=== PATIENT | male | born 1995 | race African-American/Black ===

== ENCOUNTER 2023-05-27 15:30 | Emergency (ER) | payer OTHER ==
[~2023-05-27] VITALS: Ht 175.3 cm; Wt 61.5 kg
[2023-05-27 16:13] VITALS: BP 109/77; PULSE 87; RESP 20; TEMP 99.9; O2SAT 96
[2023-05-27] MEDS ORDERED: PROM1SOL4 PO (16:57)
[2023-05-27] MEDS ORDERED: AZIT-81 PO (16:57)
== END 2023-05-27 17:27 | disposition home or self-care (01) ==
LOC: ER 15:30
DX: J20.9 Acute bronchitis, unspecified (principal); J02.9 Acute pharyngitis, unspecified
CPT/HCPCS: 71045

== ENCOUNTER 2023-06-22 13:35 | Emergency (ER) | payer OTHER ==
[~2023-06-22] VITALS: Ht 175.3 cm; Wt 60.0 kg
[~2023-06-22 13:35] MED LIST: AZIT-81 PO; PROM1SOL4 PO
[2023-06-22 14:26] VITALS: BP 116/75; PULSE 82; RESP 20; TEMP 99.4; O2SAT 96
[2023-06-22] MEDS ORDERED: NAPR-746 PO (15:13)
== END 2023-06-22 15:23 | disposition home or self-care (01) ==
LOC: ER 13:35
DX: S63.601A Unspecified sprain of right thumb, initial encounter (principal); Z79.2 Long term (current) use of antibiotics; Z79.899 Other long term (current) drug therapy; W21.05XA Struck by basketball, initial encounter; Y93.67 Activity, basketball; Y92.89 Other specified places as the place of occurrence of the external cause; Y99.8 Other external cause status
CPT/HCPCS: 73130

== ENCOUNTER 2024-04-16 10:38 | Emergency (ER) | payer OTHER ==
[~2024-04-16] VITALS: Ht 175.3 cm; Wt 60.7 kg
[~2024-04-16 10:38] MED LIST changes: +AZIT-185 PO; -AZIT-81 PO; +NAPR-746 PO
[2024-04-16 10:40] VITALS: BP 125/79; PULSE 104; RESP 18; O2SAT 98
--- NOTE | 2024-04-16 11:08 | ED.PDOC ---
Eye-HPI HPI Comments wall: HPI: Poor Historian. 28-year-old male presents to the emergency department for evaluation of three day history of runny nose nonspecific dry cough and sore throat and occasional headaches. Denies any other acute symptoms. PMHx: denies PSHx: denies Vitals: respiratory rate of 18m SpO2 of 98%RA, pulse rate of 104, and a blood pressure of 125/75 REVIEW OF SYSTEMS: CONSTITUTIONAL: Denies acute: fever, diaphoresis, chills, generalized weakness. HEAD: Denies acute: headache, photophobia Eyes: Denies acute: Double vision, vision loss, eye pain, eye discharge. EARS: Denies acute: tinnitus, hearing loss, ear discharge, ear pain, THROAT: Denies acute: swelling, difficulty swallowing , pain with swallowing, change in voice. NECK: Denies acute: neck pain, neck swelling, stiff neck. HEART: Denies acute : chest pain, palpitations, LUNGS: Denies acute: SOB, wheezing, , hemoptysis ABDOMEN: Denies acute: abdominal pain, Nausea, Vomiting, diarrhea, melena , hematemesis, hematochezia SKIN: Denies acute: rash, redness, lesions, itchiness. EXTREMITIES: Denies acute: calf pain, numbness, tingling, weakness, denies pain in extremity. Denies acute: Low back pain. Neuro: Denies acute: focal neurological deficit, motor or sensory focal neurological deficit, tremors, seizure like activity, confusion, dizziness, change in mental status, loss of bowel or bladder function, cauda equina like symptoms. : Denies acute: dysuria, hematuria, flank pain, increase in urinary frequency. PSYCH: Denies acute: hallucination, suicidal ideation, homicidal ideation. PHYSICAL EXAM: General: no acute distress, awake and alert. Head: normocephalic, atraumatic. Neck: supple, trachea is midline, no swelling. No lymphadenopathy. Throat: Normal phonation. No swelling, no erythema, no exudates, no obstruction, no drooling Eyes:, no erythema, no purulent discharge, no proptosis, no icterus. Heart: regular rate, regular rhythm, no significant murmur appreciated. Lungs: no apparent respiratory distress, Able to speak in full sentences. No wheezing, no rhonchi, no crackles. No stridors Clear to auscultation bilaterally. Abdomen: non tender to palpation, non distended, soft, no guarding, no rebound, + bowel sounds. Neuro: Awake, Alert, oriented to name, self, situation, follows commands GCS=15. Speech is normal. Skin: no petechia, no purpura, no cyanosis, non-pale, not jaundice. Lower extremities: --no - Pitting edema no deformity, no focal swelling, no calf TTP. Makes eye contact. moves all four extremities. Face: no apparent facial droop. Ambulating in the ED independently. Chief Complaint: Flu like Time Seen by MD: 11:00 Primary Care Provider: DR ROBERTSON Reviewed Notes: Nurses Notes, Medications, Allergies Allergies: Coded Allergies: NO KNOWN ALLERGIES (Unverified , 05/27/23) Home Meds Active Scripts Naproxen (Naproxen) 500 Mg Tab, 500 MG PO BID, #30 TAB Prov:JUANITA THAO 06/22/23 Promethazine-Dm (Promethazine Dm 6.25-15 mg/5Ml) 1 Anne Anne, 5 ML PO TID, #150 ML Prov:JUANITA THAO 05/27/23 Azithromycin (ZITHROMAX TABLET) 250 Mg Tb, 250 MG PO DAILY, #6 TAB Prov:JUANITA THAO 05/27/23 Information Source: Patient Was a procedure done? Was a procedure done?: No EENT DIFF Eye: N/A Ear: N/A Sore Throat: Epiglottitis, Hand Foot Mouth Disease, Herpangina, Herpetic Stomatitis, Mononeucleosis, Bird's Angina, Peritonsillar Abscess, Peritonsillar Cellulitis, Pharyngitis, Diptheria, Streptococcal, Viral Pharyngitis, URI X-Ray, Labs, Meds, VS Vital Signs Date Time Temp Pulse Resp B/P (MAP) Pulse Ox O2 Delivery O2 Flow Rate FiO2 04/16/24 10:40 98.1 104 18 125/79 (94) 98 Lab Test 04/16/24 11:04 04/16/24 11:02 Range/Units Influenza Type A Antigen Negative Negative Influenza Type B Antigen Negative Negative Group A Streptococcus Rapid Pending SARS-CoV-2 Antigen (Rapid) Negative NEGATIVE [facility] [id number] [facility] [address] Ph: [phone] DIAGNOSTIC IMAGING Diagnostic Imaging Report : [id number] Signed PATIENT: SANDIP GARDINER ACCT: [id number] UNIT: [id number] : 1995 LOC: ER ROOM / BED: / AGE / SEX: 28 / M ADM STATUS: REG ER SERVICE 1104 ORDERING PHYSICIAN: AILYN HERNANDES DO PROCEDURE(s): CXRP - CHEST PORTABLE REASON: cough ORDER NUMBER(s): [id number], ACCESSION NUMBER(s): [id number] CHEST RADIOGRAPH Indication:cough Technique: Single frontal view of the chest was obtained COMPARISON: XY CHEST XRAY 1 VIEW on DOS: 05/27/23 FINDINGS: Lines and Tubes: None Lungs: Clear Pleura: No effusion. No pneumothorax. Cardiomediastinal contours: Unremarkable Bones: Unremarkable IMPRESSION: No acute disease. ATED BY: DEVYN MUELLER MD DICTATED DATE/TIME: 04/16/24 114 SIGNED BY: DEVYN MUELLER MD SIGNED DATE/TIME: 04/16/24 114 CC: Time of 1ST Reevaluation: 11:00 Reevaluation 1ST: Unchanged Patient Education/Counseling: Diagnosis, Treatment Family Education/Counseling: No Family Present Comments Patient refused strep throat testing Patient presented with the above HPI.--sore throat and respiratory----workup was initiated. patient was found with the above mentioned diagnosis. Patient was given: Toradol and Decadron were ordered Patient ED course and VS have been stabilized. Patient has been reassessed in the ED and remained in a stable condition. All the reports of any imaging studies that were ordered by myself were reviewed by myself. I was later informed that the patient eloped from the department. Departure 1 Departure Time of Disposition: 15:03 Impression: Primary Impression: Sore throat Additional Impressions: URI (upper respiratory infection) Eloped from emergency department Disposition: 07 LEFT AWOL/ELOPED Condition: Stable Additional Instructions: Additional discharge instructions: You MUST follow-up with your primary care/family doctor in 1 to 2 days. If you are unable to see your primary care/family doctor, please return to our emergency room for re-assessment and re-evaluation in 1 to 2 days. Return to the emergency room here in our facility or to the nearest ER [facility] if your symptoms change or worsen. CONSULTATIONS: you MUST Follow-up for consultation as soon as possible with: Adequate fluid hydration. Use [id number] Tylenol ibuprofen as needed for pain control. Discharged With: Self Critical Care Note Critical Care Time?: No I personally scribed for AILYN HERNANDES DO ([email or web address]) on 04/16/24 at 11:08. Electronically submitted by Stevo Springer ([email or web address]). I personally scribed for AILYN HERNANDES DO ([email or web address]) on 04/16/24 at 11:41. Electronically submitted by Stevo Springer ([email or web address]). I personally scribed for AILYN HERNANDES DO ([email or web address]) on 04/16/24 at 12:30. Electronically submitted by Stevo Springer ([email or web address]). I personally scribed for AILYN HERNANDES DO ([email or web address]) on 04/16/24 at 16:18. Electronically submitted by Stevo Springer ([email or web address]). AILYN HERNANDES DO Apr 16, 2024 11:08
--- NOTE | 2024-04-16 11:44 | DVH ---
CHEST RADIOGRAPH Indication:cough Technique: Single frontal view of the chest was obtained COMPARISON: XY CHEST XRAY 1 VIEW on DOS: 05/27/23 FINDINGS: Lines and Tubes: None Lungs: Clear Pleura: No effusion. No pneumothorax. Cardiomediastinal contours: Unremarkable Bones: Unremarkable IMPRESSION: No acute disease.
[2024-04-16 12:15] LABS: Rapid Influenza A Negative (Negative); Rapid Influenza B Negative (Negative)
[2024-04-16 12:15] LABS: COVID19 ANTIGEN SOFIA FIA NEGATIVE (NEGATIVE)
[2024-04-16] MEDS ORDERED: KETOROLAC TROMETH 60MG/2ML VIAL IM ONE (12:45)
[2024-04-16] MEDS ORDERED: DexAMETHasone SOD PHOS 10MG/1ML VIAL INJ IM ONE (12:45)
== END 2024-04-16 16:02 | disposition left against medical advice (07) ==
LOC: ER 10:38
DX: J06.9 Acute upper respiratory infection, unspecified (principal); J02.9 Acute pharyngitis, unspecified; Z79.899 Other long term (current) drug therapy; Z20.822 Contact with and (suspected) exposure to COVID-19
CPT/HCPCS: 36415; 71045; 87426; 87804

== ENCOUNTER 2024-06-18 10:11 | Emergency (ER) | payer OTHER ==
[~2024-06-18] VITALS: Ht 175.3 cm; Wt 61.7 kg
--- NOTE | 2024-06-18 10:52 | ED.PDOC ---
Musculoskeletal HPI Comments 29 Y M presents to the ED with CC of right leg pain. Patient states, that he has been experiencing right leg and knee pain following a hiking on 06/15/23 when he climbed onto a rock and fell off. Patient relays, that he is unable to bear weight on his right leg due to the pain; current pain 12/11. Patient denies tobacco usage, smokes marijuana, and drinks occasional ETOH. Patient denies headache, LOC, fever, chills, or N/V/D. Chief Complaint: Lower Extremity Time Seen by MD: 10:24 Primary Care Provider: DR ROBERTSON Reviewed Notes: Nurses Notes, Medications, Allergies Allergies: Coded Allergies: NO KNOWN ALLERGIES (Unverified , 05/27/23) Home Meds Active Scripts Naproxen (Naproxen) 500 Mg Tab, 500 MG PO BID, #30 TAB Prov:JUANITA THAO 06/22/23 Promethazine-Dm (Promethazine Dm 6.25-15 mg/5Ml) 1 Anne Anne, 5 ML PO TID, #150 ML Prov:JUANITA THAO 05/27/23 Azithromycin (ZITHROMAX TABLET) 250 Mg Tb, 250 MG PO DAILY, #6 TAB Prov:JUANITA THAO 05/27/23 Information Source: Patient Mode of Arrival: Ambulatory Location: Right Extremity Location: Knee Timing: Days Prehospital treatment: None Severity: Moderate Able to Move Extremity: Yes Bear Weight: Limited Pain: Moderate Mechanism: None Circumstances: Fall Onset of Symptoms: After Trauma Symptoms: Pain DVT Risk Factors: NONE Associated signs and symptoms: Knee pain Past Medical History PAST MEDICAL HISTORY: Denies Surgical History: Denies all surgeries Family History Family History: Reviewed,noncontributory to illness Social History Smoker: Non-Smoker Alcohol: Occasionally Drugs: Marijuana Lives In: Home Constitutional: reports: fatigue EENTM: denies: blurred vision, double vision, ear bleeding, ear discharge, ear drainage, ear pain, ear ringing, eye pain, eye redness, hearing loss, mouth pain, mouth swelling, nasal discharge, nose bleeding, nose congestion, nose pain, photophobia, tearing, throat pain, throat swelling, voice changes, others Respiratory: denies: cough, hemoptysis, orthopnea, SOB at rest, shortness of breath, SOB with excertion, stridor, wheezing, others Cardiovascular: denies: chest pain, dizzy spells, diaphoresis, Dyspnea on exertion, edema, irregular heart beat, left arm pain, lightheadedness, palpitations, PND, syncope, others Gastrointestinal: denies: abdomen distended, abdominal pain, blood streaked bowels, constipated, diarrhea, dysphagia, difficulty swallowing, hematemesis, melena, nausea, poor appetite, poor fluid intake, rectal bleeding, rectal pain, vomiting, others Genitourinary: denies: burning, dysuria, flank pain, frequency, hematuria, in continence, penile discharge, penile sore, pain, testicle pain, testicle swelling, urgency, others Neurological: denies: dizziness, fainting, headache, left sided numbness, left sided weakness, numbness, paresthesia, pre-existing deficit, right sided numbness, right sided weakness, seizure, speech problems, tingling, tremors, weakness, others Musculoskeletal: reports: muscle pain, others (right knee pain, right leg pain, unable to bear weight); denies: back pain, gout, joint pain, joint swelling, muscle stiffness, neck pain Integumetry: denies: bruises, change in color, change in hair/nails, dryness, laceration, lesions, lumps, rash, wounds, others Allergic/Immunocompromised: denies: Difficulty Healing, Frequent Infections, Hives, Itching, others Hematologic/Lymphatic: denies: anemia, blood clots, easy bleeding, easy bruising, swollen glands, others Endocrine: denies: excessive hunger, excessive sweating, excessive thirst, excessive urination, flushing, intolerance to cold, intolerance to heat, unexplained weight gain, unexplained weight loss, others Psychiatric: denies: anxiety, bipolar disorder, depression, hopeless, panic disorder, schizophrenia, sleepless, suicidal, others All Other Systems: Reviewed and Negative Physical Exam General Appearance: No Apparent Distress HEENT: Normal ENT Inspection, Pharynx Normal, TMs Normal Neck: Full Range of Motion, Non-Tender, Normal, Normal Inspection Respiratory: Chest Non-Tender, Lungs Clear, No Accessory Muscle Use, No Respiratory Distress, Normal Breath Sounds Cardiovascular: No Edema, No JVD, No Murmur, No Gallop, Normal Peripheral Pulses, Regular Rate/Rhythm Breast Exam: Deferred Gastrointestinal: No Organomegaly, Non Tender, No Pulsatile Mass, Normal Bowel Sounds, Soft Genitalia: Deferred Pelvic: Deferred Rectal: Deferred Extremities: No calf tenderness, Normal capillary refill, No pedal edema Musculoskeletal : Location: Right Extremity Location: Knee Apperance: Limited ROM, Tenderness: Mild Neurologic: Alert, forest examiner II-XII nml as Tested, No Motor Deficits, Normal Affect, Normal Mood, No Sensory Deficits Cerebellar Function: Normal Reflexes: Normal Skin: Dry, Normal Color, Warm Lymphatic: No Adenopathy Was a procedure done? Was a procedure done?: No Differential Diagnosis EXT Differential Diagnosis: Fracture, Sprain, Dislocation X-Ray, Labs, Meds, VS Vital Signs Date Time Temp Pulse Resp B/P (MAP) Pulse Ox O2 Delivery O2 Flow Rate FiO2 06/18/24 10:24 97.9 63 14 117/63 (81) 98 Three of the right knee shows no sign of any fracture or strain The patient was being discharged with a knee immobilizer and crutches The patient will follow up with the primary care doctor The patient was told that he most likely will need an MRI to evaluate the knee further Images Reviewed?: Images reviewed and evaluated by me Time of 1ST Reevaluation: 10:34 Reevaluation 1ST: Unchanged Patient Education/Counseling: Diagnosis, Treatment, Prognosis, Need For Follow Up Family Education/Counseling: No Family Present Departure 1 Departure Time of Disposition: 11:03 Impression: Primary Impression: Right knee sprain Qualified Codes: S83.91XA - Sprain of unspecified site of right knee, initial encounter Disposition: HOME / SELF CARE / HOMELESS Condition: Fair Discharged With: Self Critical Care Note Critical Care Time?: No Stability Stability form required: No Heart Score Heart Score: Heart Score Response (Comments) Value History N/A 0 EKG N/A 0 Age N/A 0 Risk Factors N/A 0 Troponin N/A 0 Total 0 I personally scribed for CLAUDINE BAPTISTE MD ([email or web address]) on 06/18/24 at 10:52. Electronically submitted by Lisa Inman [email or web address]). CLAUDINE BAPTISTE MD Jun 18, 2024 10:52
--- NOTE | 2024-06-18 10:57 | DVH ---
CLINICAL INFORMATION: 29 years old, Male; trauma. TECHNIQUE: 3 views of the right knee were obtained. COMPARISON: None FINDINGS: No acute fracture or dislocation. No significant arthropathy. No focal soft tissue swelling . No significant joint effusion. IMPRESSION: No evidence of acute bony abnormality.
[2024-06-18 11:09] VITALS: BP 117/63; PULSE 63; RESP 14; TEMP 97.9; O2SAT 98
== END 2024-06-18 11:12 | disposition home or self-care (01) ==
LOC: ER 10:11
DX: S83.91XA Sprain of unspecified site of right knee, initial encounter (principal); F12.10 Cannabis abuse, uncomplicated; W18.09XA Striking against other object with subsequent fall, initial encounter; Y93.01 Activity, walking, marching and hiking; Y92.89 Other specified places as the place of occurrence of the external cause; Y99.8 Other external cause status
CPT/HCPCS: 29505; 73562